=== PATIENT | female | born 1965 | race Caucasian/White ===

== ENCOUNTER → 2017-05-20 | Outpatient (CLI) | payer BC ==
--- NOTE | 2017-05-20 09:38 | MM ---
Reason for exam: screening (asymptomatic). Baseline mammogram. History: Patient is nulliparous. Physical Findings: Nurse did not find any significant physical abnormalities on exam. MG Screening Mammo w CAD Bilateral CC and MLO view(s) were taken. The breast tissue is heterogeneously dense. This may lower the sensitivity of mammography. Microcalcifications inner central left breast. These results were verbally communicated with the patient and result sheet given to the patient on 05/20/17. ASSESSMENT: Incomplete: need additional imaging evaluation, BI-RAD 0 RECOMMENDATION: Special view mammogram of the left breast. [facility] will attempt to contact patient to return for supplemental views.
--- NOTE | 2017-05-20 09:40 | MM ---
Reason for exam: additional evaluation requested from abnormal screening. History: Patient is nulliparous. Physical Findings: Breast exam preformed at baseline screening. MG Work Up Mamm w CAD LT ML, CC with magnification, and ML with magnification view(s) were taken of the left breast. The breast tissue is heterogeneously dense. This may lower the sensitivity of mammography. Loosely grouped punctate calcifications inner central left breast posterior third position. 6 month follow up recommended. These results were verbally communicated with the patient and result sheet given to the patient on 05/20/17. ASSESSMENT: Probably benign, BI-RAD 3 RECOMMENDATION: Follow-up diagnostic mammogram of the left breast in 6 months.
--- NOTE | 2017-05-20 11:00 | ECHOS ---
DATE OF SERVICE: 05/20/2017 TYPE OF REPORT: STRESS ECHOCARDIOGRAM INDICATION: Tachycardia. BASELINE HEART RATE: 119 BASELINE BLOOD PRESSURE: 156/89 MAXIMUM HEART RATE: 170 MAXIMUM BLOOD PRESSURE: 187/90 85% MPHR: 144 100% MPHR: 169 METS: 7.9 MAXIMUM STAGE REACHED: III TOTAL EXERCISE TIME: 6:38 Baseline EKG revealed a sinus tachycardia without significant ST-T changes. Borderline voltage criteria for LVH was noted. Patient walked on a standard Melvin protocol for a total duration of 6 minutes, 38 seconds, achieved a maximal heart rate of 170 beats per minute, well above 85% of predicted maximal. She developed some fatigue and shortness of breath but did not have any angina or arrhythmia. EKG did not reveal any ST segment changes to indicate ischemia. By EKG criteria, this is a negative stress test with fair exercise capacity. Patient has sinus tachycardia to begin with at a rate of nearly 120 beats per minute. Baseline echo images reveal normal wall motion and wall thickening of all segment. At peak exercise, there was good augmentation of left ventricular wall motion, wall thickening of all segments suggesting that there was no evidence of stress induced ischemia on this study. FINAL IMPRESSION: 1. By EKG criteria, this is a negative stress test with fair exercise capacity. Patient had sinus tachycardia to begin with. 2. Normal stress echocardiogram with resting sinus tachycardia. [facility]
== END | disposition home or self-care (01) ==
LOC: RADMAMWWP 07:54
PROVIDERS: ATTEND Family Medicine
DX: Z12.31 Encounter for screening mammogram for malignant neoplasm of breast (principal); R92.8 Other abnormal and inconclusive findings on diagnostic imaging of breast; R00.0 Tachycardia, unspecified
CPT/HCPCS: 93017; 93350; G0202; G0206

== ENCOUNTER → 2018-01-01 | Outpatient (CLI) | payer BC ==
--- NOTE | 2018-01-01 10:20 | MM ---
Reason for exam: screening (asymptomatic). Last mammogram was performed 7 months ago. History: Patient is nulliparous. Physical Findings: A clinical breast exam by your physician is recommended on an annual basis and results should be correlated with mammographic findings. MG Diagnostic Mammo LT w CAD CC with magnification, ML with magnification, ML, CC, and MLO view(s) were taken of the left breast. Prior study comparison: May 20, 2017, left breast MG work up mamm w CAD LT. May 20, 2017, bilateral MG screening mammo w CAD. The breast tissue is heterogeneously dense. This may lower the sensitivity of mammography. Finding: There are typically benign dystrophic, round, linear, regional calcifications in the inner quadrant, middle position of the left breast. There is no discrete abnormality. These results were verbally communicated with the patient and result sheet given to the patient on 01/01/18. ASSESSMENT: Benign, BI-RAD 2 RECOMMENDATION: Return to routine screening mammogram schedule for both breasts.
== END | disposition home or self-care (01) ==
LOC: RADMAMWWP 09:28
PROVIDERS: ATTEND Family Medicine
DX: N64.89 Other specified disorders of breast (principal)
CPT/HCPCS: 77065